=== PATIENT | female | born 1985 | race Caucasian/White ===

== ENCOUNTER 2020-08-11 19:59 | Emergency (ER) | payer BC ==
[~2020-08-11] VITALS: Ht 165.1 cm; Wt 95.3 kg
[2020-08-11 20:16] VITALS: BP 117/76
--- NOTE | 2020-08-11 20:19 | NUR ---
TO LOBBY A/W BED AMBULATORY
[2020-08-11 21:41] VITALS: BP 117/76
--- NOTE | 2020-08-11 21:41 | NUR ---
PT TAKEN TO CHAIR A
[2020-08-11] MEDS ORDERED: HYDROcodone/APAP 5/325 MG 1 TAB TAB PO ONE (22:05)
[2020-08-11] MEDS ORDERED: ONDANSETRON 4 MG ODT PO ONE (22:05)
--- NOTE | 2020-08-11 22:29 | NUR ---
POSTERIOR SHORT ARM SPLINT PLACED ON PT L ARM, WRAPPED WITH ARELIS WRAP. +CSM
--- NOTE | 2020-08-11 22:30 | NUR ---
PT L ARM PLACED IN SLING, FASTENED TO SIZE.
--- NOTE | 2020-08-11 22:44 | NUR ---
Patient discharged with v/s stable. Written and verbal after care instructions given and explained. Patient alert, oriented and verbalized understanding of instructions. Ambulatory with steady gait. All questions addressed prior to discharge. ID band removed. Patient advised to follow up with PMD. Rx of NORCO AND ZOFRAN given. Patient educated on indication of medication including possible reaction and side effects. Opportunity to ask questions provided and answered.
== END 2020-08-11 22:44 | disposition home or self-care (01) ==
LOC: MED 19:59
DX: S42.402A Unspecified fracture of lower end of left humerus, initial encounter for closed fracture (principal); W18.39XA Other fall on same level, initial encounter; Y93.9 Activity, unspecified; Y92.89 Other specified places as the place of occurrence of the external cause; Y99.8 Other external cause status
CPT/HCPCS: 29105; 73080; 73090; 99284; Q0162